=== PATIENT | female | born 2000 | race Two or more races ===

== ENCOUNTER 2024-06-12 14:54 | Emergency (ER) | payer OTHER ==
--- NOTE | 2024-06-12 16:13 | RAD REPORT ---
EXAM:OB Limited CLINICAL HISTORY: with abdominal pain TECHNIQUE: Limited OB ultrasound performed FINDINGS: in cephalic presentation. Placenta is anterior. No subchorionic/retroplacental bleed seen. Amniotic fluid index 13. Cc. Cardiac activity 138 bpm. The cervix was not well visualized but appears to measure approximately 4 cm. Femur length 6.7 cm 34 weeks 5 days IMPRESSION: Single live intrauterine in cephalic presentation Normal amniotic fluid No retroplacental/subchorionic bleed
--- NOTE | 2024-06-12 16:16 | ER ---
Nurse's Notes [facility] Name: Jenna Soliman Age: 23 yrs Sex: Female : 2000 Arrival Date: 06/12/2024 Time: 14:54 Bed 1 Private MD: Diagnosis: Decreased movements Presentation: 06/12 15:00 Chief complaint: Patient states: Pt reports decreased movement since 0430 this kb3 morning. Pt denies any bloody show, loss of fluid, pain or cramping. . 15:00 Coronavirus screen: Vaccine status: Patient reports receiving the 2nd dose of the covid kb3 vaccine. Client denies travel out of the [place] in the last 14 days. Ebola Screen: Patient negative for fever greater than or equal to 101.5 degrees Fahrenheit, and additional compatible Ebola Virus Disease symptoms Patient denies exposure to infectious person. Patient denies travel to an Ebola-affected area in the 21 days before illness onset. Initial Sepsis Screen: Does the patient meet any 2 criteria? No. Patient's initial sepsis screen is negative. Does the patient have a suspected source of infection? No. Patient's initial sepsis screen is negative. Risk Assessment: Do you want to hurt yourself or someone else? Patient reports no desire to harm self or others. Onset of symptoms was June 12, 2024 at 04:30. 15:00 Method Of Arrival: Ambulatory kb3 15:00 Acuity: GILMER 2 kb3 Triage Assessment: 15:41 General: Appears in no apparent distress. Behavior is calm, cooperative. Pain: Denies kb3 pain. ZIGZAG APPLIQUER: 15:41 1, Full Term 0, Premature 0, 0, Living 0, unknown kb3 Historical: - Allergies: 15:41 No Known Allergies; kb3 - Home Meds: 15:41 None [Active]; kb3 - PMHx: 15:41 None; kb3 - PSHx: 15:41 None; kb3 - Immunization history:: Adult Immunizations up to date, Client reports receiving the 2nd dose of the Covid vaccine, Last tetanus immunization: up to date. - Infectious Disease History:: Denies. - Social history:: Smoking status: Patient denies any tobacco usage or history of. Screenin:44 [facility] ED Fall Risk Assessment (Adult) History of falling in the last 3 months, kb3 including since admission No falls in past 3 months (0 pts) Confusion or Disorientation No (0 pts) Intoxicated or Sedated No (0 pts) Impaired Gait No (0 pts) Mobility Assist Device Used No (0 pt) Altered Elimination No (0 pt) Score/Fall Risk Level 0 - 2 = Low Risk Oriented to surroundings. Abuse screen: Denies threats or abuse. Denies injuries from another. Nutritional screening: No deficits noted. Tuberculosis screening: No symptoms or risk factors identified. Assessment: 15:40 General: US Tech at bedside.. kb3 15:43 GI: Abdomen is gravid. kb3 15:44 Obstetrical Assessment: General assessment: awake and alert, skin warm and dry, kb3 respirations even and unlabored, Patient reports absence of movement. Vital Signs: 15:00 BP 124 / 85; Pulse 85; Resp 18; Temp 98.8; Pulse Ox 100% ; Weight 61 kg; Height 5 ft. 2 kb3 in. ; Pain 0/10; 15:00 Body Mass Index 24.60 (61.00 kg, 159 cm) kb3 15:00 Pain Scale: Adult kb3 Vitals: 15:47 Heart Tones 155. kb3 ED Course: 14:57 Patient arrived in ED. mr 15:01 Rancho Foley MD is Attending Physician. ec2 15:41 Triage completed. kb3 15:41 Arm band placed on right wrist. Patient placed in an exam room, on a stretcher. kb3 15:44 Patient has correct armband on for positive identification. Call light in reach. kb3 Provided Education on: FHT, triage, abdominal US. 15:44 No provider procedures requiring assistance completed. Patient did not have IV access kb3 during this emergency room visit. 15:54 US OB Limited In Process Unspecified. EDMS 16:20 Nancy Marquez, RN is Primary Nurse. iw Administered Medications: No medications were administered Medication: 15:44 VIS not applicable for this client. kb3 Outcome: 16:15 Discharge ordered by . ec2 16:20 Discharged to home ambulatory, with family, iw 16:20 Condition: good 16:20 Discharge instructions given to patient, family, Instructed on discharge instructions, follow up and referral plans. Demonstrated understanding of instructions, follow-up care, 16:20 Patient left the ED. iw Signatures: Dispatcher [employer] ED EstradaKristan mitchell, Reg Reg mr Nancy Marquez, RN RN iw Leticia Johnson, ANA RN kb3 Rancho Foley MD MD ec2 Corrections: (The following items were deleted from the chart) 15:45 15:43 : kb3 kb3 15:45 15:43 : kb3 kb3 15:55 15:00 BP 124 / 85; Pulse 85bpm; Resp 18bpm; Pulse Ox 99%; 61 kg; Height 5 ft. 2 in.; kb3 BMI: 24.1; Pain 0/10, Adult; kb3
--- NOTE | 2024-06-12 16:16 | EDPHYS ---
Physician Documentation [facility] Name: Jenna Soliman Age: 23 yrs Sex: Female : 2000 Arrival Date: 06/12/2024 Time: 14:54 Bed 1 Private MD: ED Physician Rancho Foley HPI: 06/12 15:15 This 23 yrs old [place] Female presents to ER via Unassigned with complaints of 36 wks ec2 , decreased movement. 15:15 Patient arrives today due to concern for decreased movement. Is approximately 36 ec2 weeks , reports no vaginal bleeding, no abdominal pain, no loss of mucous plug. HYDROGEOLOGIST: 15:41 1, Full Term 0, Premature 0, 0, Living 0, unknown kb3 Historical: - Allergies: 15:41 No Known Allergies; kb3 - Home Meds: 15:41 None [Active]; kb3 - PMHx: 15:41 None; kb3 - PSHx: 15:41 None; kb3 - Immunization history:: Adult Immunizations up to date, Client reports receiving the 2nd dose of the Covid vaccine, Last tetanus immunization: up to date. - Infectious Disease History:: Denies. - Social history:: Smoking status: Patient denies any tobacco usage or history of. ROS: 15:16 Constitutional: as per hpi ec2 Exam: 15:16 Constitutional: GEN: NAD Head: atraumatic Eyes: EOMI Ears: External ears are ec2 normal. CV: regular rate LUNGS: no respiratory distress ABD: non-distended, soft, nontender, nondistended SKIN: no evidence of rashes MSK: no evidence of trauma Vital Signs: 15:00 BP 124 / 85; Pulse 85; Resp 18; Temp 98.8; Pulse Ox 100% ; Weight 61 kg; Height 5 ft. 2 kb3 in. ; Pain 0/10; 15:00 Body Mass Index 24.60 (61.00 kg, 159 cm) kb3 15:00 Pain Scale: Adult kb3 MDM: 15:14 Medical Screening Exam initiated ec2 15:16 Data reviewed: vital signs, nurses notes. ED course: Patient arrives today for ec2 decreased activity. Examination is unrevealing. Will obtain heart tones and ultrasound.. 15:31 ED course: heart tones in the 150s.. ec2 16:11 ED course: Ultrasound with no actionable abnormalities. Will discharge home. Turn ec2 precautions given.. 06/12 15:15 Order name: US OB Limited; Complete Time: 16:15 ec2 06/12 15:02 Order name: FHT's ec2 Administered Medications: No medications were administered Disposition Summary: 06/12/24 16:15 Discharge Ordered Notes: Location: Home ec2 Condition: Stable ec2 Diagnosis - Decreased movements ec2 Followup: ec2 - With: Private Physician - When: - Reason: Re-evaluation by your physician Discharge Instructions: - Discharge Summary Sheet ec2 - Third Trimester of ec2 Forms: - Medication Reconciliation Form ec2 - Antibiotic Education ec2 - Prescription Opioid Use ec2 - Patient Portal Instructions ec2 - Leadership Thank You Letter ec2 Signatures: Dispatcher [employer] Leticia Glover RN RN kb3 Rancho Foley MD MD ec2 Corrections: (The following items were deleted from the chart) 15:16 15:15 Patient arrives today due to concern for decreased movement.. ec2 ec2
[2024-06-12 16:25] VITALS: BP 124/85; TEMP 98.8; O2SAT 100
== END 2024-06-12 16:20 | disposition home or self-care (01) ==
LOC: ER 14:54
DX: O36.8130 Decreased fetal movements, third trimester, not applicable or unspecified (principal); Z3A.36 36 weeks gestation of pregnancy
CPT/HCPCS: 76815; 99283

== ENCOUNTER 2024-07-05 01:29 | Emergency (ER) | payer OTHER ==
--- NOTE | 2024-07-05 02:28 | ER ---
Nurse's Notes [facility] Name: Jenna Soliman Age: 23 yrs Sex: Female : 2000 Arrival Date: 07/05/2024 Time: 01:29 Bed 1 Private MD: Diagnosis: Vaginal bleeding resolved during third trimester Presentation: 07/05 01:51 Chief complaint: Patient states: 39 weeks , states she believes her mucus al5 plug came out. Coronavirus screen: At this time, the client does not indicate any symptoms associated with coronavirus-19. Ebola Screen: No symptoms or risks identified at this time. Initial Sepsis Screen: Does the patient meet any 2 criteria? No. Patient's initial sepsis screen is negative. Does the patient have a suspected source of infection? No. Patient's initial sepsis screen is negative. Risk Assessment: Do you want to hurt yourself or someone else? Patient reports no desire to harm self or others. Onset of symptoms was July 04, 2024. 01:51 Method Of Arrival: Wheelchair al5 01:51 Acuity: GILMER 3 al5 Triage Assessment: 01:54 General: Appears in no apparent distress. comfortable, Behavior is calm, cooperative. al5 Pain: Denies pain. EENT: No signs and/or symptoms were reported regarding the EENT system. Neuro: Level of Consciousness is awake, alert, obeys commands, Oriented to person, place, time, situation. Cardiovascular: Capillary refill < 3 seconds Patient's skin is warm and dry. Respiratory: Airway is patent Respiratory effort is even, unlabored, Respiratory pattern is regular, symmetrical. GI: No signs and/or symptoms were reported involving the gastrointestinal system. : patient 39 weeks . Derm: Skin is intact, is healthy with good turgor, Skin is pink, warm \T\ dry. normal. Musculoskeletal: No signs and/or symptoms reported regarding the musculoskeletal system. BELL ATTENDANT: 01:56 Verified al5 Historical: - Allergies: 01:53 No Known Allergies; al5 - PMHx: 01:53 None; al5 - PSHx: 01:53 None; al5 - Immunization history:: Adult Immunizations up to date. - Infectious Disease History:: Denies. - Social history:: Smoking status: Patient denies any tobacco usage or history of. Screenin:55 [facility] ED Fall Risk Assessment (Adult) History of falling in the last 3 months, al5 including since admission No falls in past 3 months (0 pts) Confusion or Disorientation No (0 pts) Intoxicated or Sedated No (0 pts) Impaired Gait No (0 pts) Mobility Assist Device Used No (0 pt) Altered Elimination No (0 pt) Score/Fall Risk Level 0 - 2 = Low Risk Oriented to surroundings, Maintained a safe environment, Hourly rounding (assess needs \T\ fall precautionary measures) done. Abuse screen: Denies threats or abuse. Denies injuries from another. Nutritional screening: No deficits noted. Tuberculosis screening: No symptoms or risk factors identified. Assessment: :55 Reassessment: see triage assessment. al5 Vital Signs: 01:51 BP 125 / 78; Pulse 84; Resp 16; Temp 97; Pulse Ox 98% on R/A; Weight 63 kg; Height 5 al5 ft. 1 in. ; 01:51 Body Mass Index 26.24 (63.00 kg, 154.94 cm) al5 ED Course: 01:37 Patient arrived in ED. gm2 01:40 Neva Jordan MD is Attending Physician. sp3 01:51 Leonor Ball RN is Primary Nurse. al5 01:53 Triage completed. al5 01:55 Arm band placed on right wrist. Patient placed in the treatment room, in view of staff al5 members, on pulse oximetry. 01:55 Patient has correct armband on for positive identification. Bed in low position. Call al5 light in reach. Side rails up X 1. significant other at bedside. Provided Education on: plan of care. 01:56 No provider procedures requiring assistance completed. al5 02:31 US OB Limited In Process Unspecified. EDMS 02:32 Patient did not have IV access during this emergency room visit. al5 Administered Medications: No medications were administered Medication: 01:55 VIS not applicable for this client. al5 Outcome: 02:27 Discharge ordered by . sp3 02:32 Discharged to home ambulatory, with significant other, al5 02:32 Condition: good 02:32 Discharge instructions given to patient, significant other, Instructed on discharge instructions, follow up and referral plans. Demonstrated understanding of instructions, follow-up care, 02:33 Patient left the ED. al5 Signatures: Dispatcher [employer] EDMS Jordan, Setul, MD MD sp3 [place] gm2 Leonor Ball RN RN al5
--- NOTE | 2024-07-05 02:28 | EDPHYS ---
Physician Documentation [facility] Name: Jenna Soliman Age: 23 yrs Sex: Female : 2000 Arrival Date: 07/05/2024 Time: 01:29 Bed 1 Private MD: ED Physician Neva Jordan HPI: 07/05 01:56 This 23 yrs old [place] Female presents to ER via Wheelchair with complaints of sp3 with resolved vaginal bleeding x 1. 01:56 23-year-old female at 39 weeks presents with 1 episode of blood clot per sp3 vagina. No other bleeding, discharge or cramping noted. Her OB is at [place] and she plans on delivering in [place]. No other symptoms reported. Review of systems negative for fever, headache, chest pain, shortness of breath, upper abdominal pain, dysuria, back pain, syncope, near syncope, or any other signs or symptoms on ROS at this time.. POLICE CHIEF DEPUTY: 01:56 Verified al5 Historical: - Allergies: 01:53 No Known Allergies; al5 - PMHx: 01:53 None; al5 - PSHx: 01:53 None; al5 - Immunization history:: Adult Immunizations up to date. - Infectious Disease History:: Denies. - Social history:: Smoking status: Patient denies any tobacco usage or history of. ROS: 01:57 Constitutional: Negative for fever, chills, and weight loss, Eyes: Negative for injury, sp3 pain, redness, and discharge, ENT: Negative for injury, pain, and discharge, Neck: Negative for injury, pain, and swelling, Cardiovascular: Negative for chest pain, palpitations, and edema, Respiratory: Negative for shortness of breath, cough, wheezing, and pleuritic chest pain, Abdomen/GI: Negative for abdominal pain, nausea, vomiting, diarrhea, and constipation, Back: Negative for injury and pain, MS/Extremity: Negative for injury and deformity, Skin: Negative for injury, rash, and discoloration, Neuro: Negative for headache, weakness, numbness, tingling, and seizure, Psych: Negative for depression, anxiety, suicide ideation, homicidal ideation, and hallucinations, Allergy/Immunology: Negative for hives, rash, and allergies, Endocrine: Negative for neck swelling, polydipsia, polyuria, polyphagia, and marked weight changes, Hematologic/Lymphatic: Negative for swollen nodes, abnormal bleeding, and unusual bruising, 01:57 All other systems are negative, Exam: 01:57 Constitutional: This is a well developed, well nourished patient who is awake, alert, sp3 and in no acute distress. Head/Face: Normocephalic, atraumatic. Eyes: Pupils equal round and reactive to light, extra-ocular motions intact. Lids and lashes normal. Conjunctiva and sclera are non-icteric and not injected. Cornea within normal limits. Periorbital areas with no swelling, redness, or edema. Neck: Trachea midline, no thyromegaly or masses palpated, and no cervical lymphadenopathy. Supple, full range of motion without nuchal rigidity, or vertebral point tenderness. No Meningismus. Chest/axilla: Normal chest wall appearance and motion. Nontender with no deformity. No lesions are appreciated. Cardiovascular: Regular rate and rhythm with a normal S1 and S2. No gallops, murmurs, or rubs. Normal PMI, no JVD. No pulse deficits. Respiratory: Lungs have equal breath sounds bilaterally, clear to auscultation and percussion. No rales, rhonchi or wheezes noted. No increased work of breathing, no retractions or nasal flaring. Back: No spinal tenderness. No costovertebral tenderness. Full range of motion. Skin: Warm, dry with normal turgor. Normal color with no rashes, no lesions, and no evidence of cellulitis. MS/ Extremity: Pulses equal, no cyanosis. Neurovascular intact. Full, normal range of motion. Neuro: Awake and alert, GCS 15, oriented to person, place, time, and situation. Cranial nerves II-XII grossly intact. Motor strength 5/5 in all extremities. Sensory grossly intact. Cerebellar exam normal. Normal gait. Psych: Awake, alert, with orientation to person, place and time. Behavior, mood, and affect are within normal limits. 01:57 Abdomen/GI: Gravid uterus consistent with dates. Pelvic exam deferred., Vital Signs: 01:51 BP 125 / 78; Pulse 84; Resp 16; Temp 97; Pulse Ox 98% on R/A; Weight 63 kg; Height 5 al5 ft. 1 in. ; 01:51 Body Mass Index 26.24 (63.00 kg, 154.94 cm) al5 MDM: 01:40 Medical Screening Exam initiated sp3 01:57 Data reviewed: vital signs, nurses notes, radiologic studies. ED course: 23-year-old sp3 female at 39 weeks with either mucous plug release or other minor bleeding. No active symptoms exist. Will obtain OB ultrasound and if negative follow-up with PCP/OB.. 02:26 ED course: Ultrasound shows good movement with slightly low amniotic fluid. No sp3 discharge or fluid leaking currently. No contractions. Will discharge patient home with close OB follow-up.. 07/05 01:47 Order name: US OB Limited sp3 07/05 01:47 Order name: NPO; Complete Time: 01:51 sp3 Administered Medications: No medications were administered Disposition Summary: 07/05/24 02:27 Discharge Ordered Notes: Location: Home sp3 Condition: Stable sp3 Diagnosis - Vaginal bleeding resolved during third trimester sp3 Followup: sp3 - With: Private Physician - When: Upon discharge from the Emergency Department - Reason: Continuance of care Discharge Instructions: - Discharge Summary Sheet sp3 - Third Trimester of sp3 Forms: - Medication Reconciliation Form sp3 - Antibiotic Education sp3 - Prescription Opioid Use sp3 - Patient Portal Instructions sp3 - Leadership Thank You Letter sp3 Signatures: Dispatcher [employer] EDNeva Durand MD MD sp3 Leonor Ball RN RN al5
[2024-07-05 02:46] VITALS: BP 125/78; TEMP 97; O2SAT 98
--- NOTE | 2024-07-05 04:14 | RAD REPORT ---
PROCEDURE: US LIMITED INDICATION: . Abdominal cramping. COMPARISON: None TECHNIQUE: Grayscale and color Doppler imaging was performed. FINDINGS: A single intrauterine is visualized. position: Cephalic. Heart rate: 130 beats per minute Placental location: Anterior. Previa: None. Abruption:None. Cervix: Closed. 3.47 cm in length. ADRY: 4.51 cm Femur length: 7.04 cm, correlating with 36 weeks 1 days IMPRESSION: 1. Single live intrauterine with oligohydramnios. 2. Amniotic fluid index measures 4.51 cm. Electronically signed by: Leslye Lilly MD 07/05/2024 04:09 AM [facility] Due to temporary technical issues with the PACS/Free & Clear scribe reporting system, reports are being sign ed by the in-house radiologist without review as a courtesy to ensure prompt reporting the interpreting rad iologist is fully responsible for the content of the report. Transcribed Date/Time: 07/05/2024 4:14 AM
== END 2024-07-05 02:33 | disposition home or self-care (01) ==
LOC: ER 01:29
DX: O46.93 Antepartum hemorrhage, unspecified, third trimester (principal); Z3A.39 39 weeks gestation of pregnancy
CPT/HCPCS: 76815; 99283